=== PATIENT | male | born 1955 | race Caucasian/White ===

== ENCOUNTER 2024-07-18 10:21 | Outpatient (AMB) | payer MEDICARE, MEDICAID, SELFPAY ==
--- NOTE | 2024-07-18 10:31 | A.OFFVIS_ITS ---
Vital Signs 07/18/24 10:42 Height 5 ft 10 in Weight 202 lb 6 oz BMI 29.0 BP 140/89 H Blood Pressure Location Lt brachial Position Sitting Respiration 16 Pulse 74 Pulse Source Pulse Oximeter Pulse Oximetry (%) 93 Oxygen Delivery Method Room Air Intake Visit Reasons: Lumbar Disc Disease Intake Note: Patient comes in for initial visit was referred by [facility]. He is accompanied by sister Tamie. Reports pain 03/04. Accompanied by: Sister Allergies No Known Allergies Allergy (Verified 07/18/24 10:41) HPI Comments Details: Jabari is very pleasant [place]-speaking 69 years old gentleman who presents in my office with complains on pain in the lower back as well as discomfort in the right upper and right lower extremity secondary to the stroke. He reports the pain in the back is most severe in the left side of the back. The most of the problem he experiences with this pain when he is trying to stand up from sitting position as well as when he is standing and walking. He does not report increased pain with prolonged sitting. He is able to lie down without difficulty. He received the stroke in August of 2013. However he reports that back pain started 1 year ago. Because of his pain he reports that he can not sleep normally. He can do activities of daily living, he can barely take care of himself but he can not function normally. He is retired individual. He tried physical therapy for his pain long time ago. He tried NSAIDs and Tylenol with no help. He never had an MRI of the lumbar spine before. He never received any injections. His past medical history significant for frequent uri nations and history of stroke. Past medical history significant for cholecystectomy in 2002. Social history: He stopped smoking 13 years ago. He denies drinking alcohol caffeinated beverages he denies recreational drugs. Review of Systems Card Reports no additional complaints Resp Reports no additional complaints GI Reports no additional complaints Reports urinary frequency Musc Reports as per HPI Neuro Reports as per HPI Physical Exam Vital Signs: Last Vital Signs Pulse 74 07/18/24 10:42 Resp 16 07/18/24 10:42 BP 140/89 H 07/18/24 10:42 Pulse Ox 93 07/18/24 10:42 Oxygen Delivery Method Room Air 07/18/24 10:42 BMI result Body Mass Index 29.0 Const General: cooperative and well developed Nutritional Appearance: well nourished and obese Orientation/consciousness: patient oriented x3 Limitations: no limitations Chest Chest palpation & inspection: normal inspection of the chest Resp Effort & Inspection: normal respiratory effort, able to speak in complete sentences, normal respiratory pattern, no audible wheezes and no cough Cardio Jugular venous distension: no JVD GI Inspection: Yes normal to inspection General: Yes no CVA tenderness Back/Spine/Pelvis Other: No tenderness on palpation in spinal paraspinal regions. 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 Unable to stand up. SLR is negative bilaterally. Obi test is negative bilaterally. Pelvic compression pelvic distraction test is negative bilaterally. Flexion forward and flexion backwards do not affect his pain. Valsalva maneuver do not change his pain. Back: no CVA tenderness Neuro General: patient oriented x3 Assessment & Plan Assessment & Plan (1) Spondylosis of lumbar region without myelopathy or radiculopathy: Code(s): M47.816 - Spondylosis without myelopathy or radiculopathy, lumbar region Category: Medical (2) Chronic pain syndrome: Code(s): G89.4 - Chronic pain syndrome Category: Medical Plan This patient is suffering from spondylosis of lumbar spine and never had MRI done. I will send him for MRI of the lumbar spine. Also send in for physical therapy to treat his lower back pain. After the patient will receive the MRI he will give us a call and schedule appointment with me. We will review the results of the MRI and detect the plan of further treatment. Orders: Orders MR lumbar spine wo con Today M47.816 - Spondylosis without myelopathy or radiculopathy, lumbar region PT Evaluation and Treatment Today G89.4 - Chronic pain syndrome, M47.816 - Spondylosis without myelopathy or radiculopathy, lumbar region Coding Level of Care Code New Pt Level 3 (68027) Diagnoses Spondylosis of lumbar region without myelopathy or radiculopathy M47.816 Chronic pain syndrome G89.4
[2024-07-18 10:42] VITALS: BP 140/89; PULSE 74; RESP 16; O2SAT 93; BMI 29.0
== END 2024-07-18 11:09 | disposition home or self-care (01) ==
PROVIDERS: PCP Physician Assistant; Referring Provider Physician Assistant; Visit Provider Anesthesiology
DX: M47.816 Spondylosis without myelopathy or radiculopathy, lumbar region (principal); G89.4 Chronic pain syndrome
CPT/HCPCS: 99203

== ENCOUNTER → 2024-07-18 10:21 | Outpatient (BNVA) | payer MEDICARE, SELFPAY | PROVIDERS: PCP Physician Assistant; Referring Provider Physician Assistant; Visit Provider Anesthesiology | DX: M47.816 Spondylosis without myelopathy or radiculopathy, lumbar region (principal); G89.4 Chronic pain syndrome | CPT/HCPCS: 99202 ==

== ENCOUNTER 2024-08-09 11:00 | Outpatient (RCR) | payer MEDICARE, MEDICAID, SELFPAY | END 2024-08-14 15:07 | disposition home or self-care (01) | LOC: HO.PT 11:00 | PROVIDERS: PCP Physician Assistant; Visit Provider Anesthesiology | DX: M47.816 Spondylosis without myelopathy or radiculopathy, lumbar region (principal); G89.4 Chronic pain syndrome | CPT/HCPCS: 97163 ==

== ENCOUNTER 2024-08-24 09:51 | Outpatient (REF) | payer MEDICARE, MEDICAID, SELFPAY | END 2024-08-24 09:52 | disposition home or self-care (01) | LOC: HO.MRI 09:51 | PROVIDERS: PCP Physician Assistant; Visit Provider Anesthesiology | DX: M47.816 Spondylosis without myelopathy or radiculopathy, lumbar region (principal) | CPT/HCPCS: 72148 ==

== ENCOUNTER 2024-10-10 13:26 | Outpatient (AMB) | payer MEDICARE, MEDICAID, SELFPAY ==
--- NOTE | 2024-10-10 13:27 | A.OFFVIS_ITS ---
Vital Signs 10/10/24 13:35 Height 5 ft 10 in Weight 198 lb 6.656 oz BMI 28.5 BP 167/86 H Blood Pressure Location Lt brachial Position Sitting Pulse 107 H Pulse Source Pulse Oximeter Pulse Oximetry (%) 97 Oxygen Delivery Method Room Air Intake Visit Reasons: Discuss MRI Results Intake Note: Pain today 04/03 Tungsten [employer]iner Required: No Accompanied by: Self / Same As Patient Allergies No Known Allergies Allergy (Verified 10/10/24 13:36) HPI Comments Details: Jabari is back in my office after we performed MRI of the lumbar spine. Results of the MRI dictated as below. Unfortunately patient did not complete any of the recommended physical therapy for him. I insisted on him trying to complete at least 6 sessions of physical therapy with good exercise program. Then I will be able to address the changes on his MRI with injections. Prior: complains on pain in the lower back as well as discomfort in the right upper and right lower extremity secondary to the stroke. He reports the pain in the back is most severe in the left side of the back. The most of the problem he experiences with this pain when he is trying to stand up from sitting position as well as when he is standing and walking. He does not report increased pain with prolonged sitting. He is able to lie down without difficulty. History of stroke, 2013. back pain started 1 year ago. He tried NSAIDs and Tylenol with no help. He never had an MRI of the lumbar spine before. He never received any injections. Review of Systems Const All systems reviewed & are unremarkable except as noted in HPI and below Physical Exam Vital Signs: Last Vital Signs Pulse 107 H 10/10/24 13:35 BP 167/86 H 10/10/24 13:35 Pulse Ox 97 10/10/24 13:35 Oxygen Delivery Method Room Air 10/10/24 13:35 BMI result Body Mass Index 28.5 Const General: cooperative and well developed Nutritional Appearance: well nourished and obese Orientation/consciousness: patient oriented x3 Limitations: no limitations Chest Chest palpation & inspection: normal inspection of the chest Resp Effort & Inspection: normal respiratory effort, able to speak in complete se ntences, normal respiratory pattern, no audible wheezes and no cough Cardio Jugular venous distension: no JVD GI Inspection: Yes normal to inspection General: Yes no CVA tenderness Back/Spine/Pelvis Other: No tenderness on palpation in spinal paraspinal regions. 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 Unable to stand up. SLR is negative bilaterally. Obi test is negative bilaterally. Pelvic compression pelvic distraction test is negative bilaterally. Flexion forward and flexion backwards do not affect his pain. Valsalva maneuver do not change his pain. Back: no CVA tenderness Neuro General: patient oriented x3 Results Reviewed Results Reviewed: MR LUMBAR SPINE WITHOUT CONTRAST CLINICAL INFORMATION: 69-year-old with self-reported low back pain of 3-4 years' duration, now worsening with self-reported lumbar radicular symptoms, right more than left. Spondylosis without myelopathy or radiculopathy, lumbar region. FINDINGS: CORONAL ALIGNMENT: There is mild mid to lower lumbar dextrocurvature, with mild ntac-td-muuwp lateral listhesis at L4-L5 stable from prior CT. SAGITTAL ALIGNMENT: Mild retrolisthesis at L5-S1 is stable. Otherwise the lumbar spine is anatomically aligned in the sagittal plane. LUMBOSACRAL JUNCTION: Normal. There are 5 lvk-ame-jxsyyrv lumbar-type vertebral bodies. VERTEBRAL BODIES: There is approximately 30-35% loss of height along the superior endplate of the L1 vertebral body since the prior CT, which appears largely healed consistent with a benign compression fracture since the previous exam with slight retropulsion of the superior endplate. Remaining vertebral body heights are largely stable since the previous CT. DISC SPACES AND ENDPLATES: Moderate disc space height loss is noted at L5-S1 with intradiscal degenerative signal changes and intradiscal vacuum disc phenomenon similar to the prior CT. Schmorl's node formation is noted along the inferior endplate of L5 also similar to prior CT and there is anterolateral spondylosis more evident at this level than prior CT. There is severe disc space height loss at L4-L5 similar to the prior CT with intradiscal degenerative signal changes, Schmorl's nodes and rwjkkltl-lo-jhdzug spondylosis. There is intradiscal degenerative signal change seen throughout the remainder of the lumbar and visualized lower thoracic intervertebral discs. There is a Schmorl's node along the compressed superior endplate of L1. There is fishmouth remodeling along the endplates between T12-L1 and L3-L4 inclusive. SPINAL CANAL: There is moderately prominent epidural fat noted with prominent dorsal fat pads at L2-L3 and L3-L4 and prominent dorsal and ventral epidural fat at L4-L5 and L5-S1. BONE MARROW: There is type I and type III degenerative marrow signal change seen along the inferior endplate of L5. There is predominately type II degenerative marrow signal change along the endplates at L4-L5 and there is predominately type II marrow signal change along the superior endplate of L1. Small foci of signal loss are seen within the left iliac bone which corresponded to sclerotic foci on the previous CT consistent with bone islands. No suspicious marrow-replacing process or bone marrow edema. CONUS MEDULLARIS: Terminates at L1. Morphology and signal is normal. INTRADURAL NERVE ROOTS: Within normal limits. L5-S1: Concentric disc osteophyte complex is noted which contacts the ventral thecal sac and left S1 nerve root sleeve. There is mild left and vaoj-ms-uvxkjztk right-sided facet joint arthropathy noted with ligamentum flavum thickening without significant canal stenosis. There is mliuohea-ma-atjzlh right-sided and sujz-br-mdcrtwdu left-sided neural foraminal stenosis with encroachment on the right L5 nerve root. L4-L5: Concentric disc osteophyte complex is noted with flattening of the ventral dural sac with moderate facet joint arthropathy bilaterally and probable calcification or ossification of the ligamentum flavum on the right. No significant central canal stenosis. There is some crowding of the subarticular zones bilaterally, left more than right with mild encroachment on the L5 nerve roots, left more than right. Fncu-lo-rahiepas neural foraminal stenosis is noted bilaterally with disc osteophyte complex abutting the exiting left L4 nerve root. L3-L4: Diffuse disc bulging is noted with concentric annular fissuring and mild flattening of the ventral dural sac with a prominent dorsal fat pad. Ligamentum flavum thickening is noted with encefckk-ud-bqkhof facet joint arthropathy, right more than left. There is mild central canal stenosis and slight narrowing of the subarticular zones. There is mild bilateral foraminal narrowing. L2-L3: There is disc bulging with a superimposed shallow right paracentral disc protrusion and right posterolateral/paravertebral disc osteophyte complex. There is qpjb-af-fosvzekk flattening of the ventral dural sac slightly asymmetric to the right with a prominent dorsal fat pad with ligamentum flavum thickening, moderate right and mild left-sided facet joint arthropathy. Mild central canal stenosis is noted with mild left and abot-uq-voboqrcr right-sided neural foraminal narrowing. Disc osteophyte complex contacts the extraforaminal right L2 nerve root. L1-L2: There is disc bulging and a shallow central to left paramedian disc protrusion with annular fissuring and mild flattening of the ventral dural sac asymmetric to the left. Ligamentum flavum thickening is noted without significant canal stenosis. Mild facet joint arthropathy is noted bilaterally. There is almg-gd-nkzfqnif neural foraminal narrowing, left more than right. There is diffuse disc bulging at T12-L1 with moderate bilateral facet joint arthropathy at this level and mild flattening of the ventral dural sac with mild central canal stenosis without cord impingement. There is moderate bilateral neural foraminal stenosis. There is facet joint arthropathy bilaterally at T11-T12 which is not imaged in the axial plane. PARAVERTEBRAL AND INCLUDED EXTRASPINAL SOFT TISSUES: The paravertebral soft tissues appear grossly unremarkable. The visualized retroperitoneal structures are grossly unremarkable in appearance within the limitations of the study. There is marked prostatic enlargement, indenting and elevating the bladder base similar to prior CT. MR/MR lumbar spine wo con IMPRESSION: 1. Mild mid to lower lumbar dextrocurvature with peyp-xh-ketrs lateral listhesis at L4-L5 and mild retrolisthesis at L5-S1 stable from prior CT. 2. Severe discogenic degenerative changes at L4-L5 and L5-S1 with spondylosis similar to prior CT. 3. Multilevel disc bulging and disc osteophyte complexes with multilevel bilateral facet joint arthropathy and ligamentum flavum thickening superimposed on prominent dorsal fat pads, with mild degrees of canal stenosis at L3-L4 and L2-L3 and mild canal stenosis at T12-L1. 4. Multilevel bilateral neural foraminal stenosis, most apparent on the right at L5-S1 with encroachment on the right L5 nerve root and to a lesser degree bilaterally at L4-L5 with encroachment on the extraforaminal left L4 nerve root. Oqvb-wa-bsioovwk neural foraminal narrowing on the right at L2-L3 and bilaterally at L1-L2 and T12-L1. 5. Aqdv-wh-jaltqepq, benign-appearing, chronic compression fracture along the superior endplate of L1 which appears largely healed with slight retropulsion of the superior endplate, new finding from prior CT. 6. Marked prostatic enlargement, unchanged. Assessment & Plan Assessment & Plan (1) Spondylosis of lumbar region without myelopathy or radiculopathy: Code(s): M47.816 - Spondylosis without myelopathy or radiculopathy, lumbar region Category: Medical (2) Chronic pain syndrome: Code(s): G89.4 - Chronic pain syndrome Category: Medical (3) Vertebrogenic low back pain: Code(s): M54.51 - Vertebrogenic low back pain Category: Medical Plan This patient is suffering from spondylosis of lumbar spine and never had MRI done. I MRI results are as above however the patient did not even think about completing his physical therapy. I will schedule him again for physical therapy. He must complete at least 6 sessions and continue home exercise program. After that we will be able to address the changes on the MRI above. Orders: Orders PT Evaluation and Treatment Today G89.4 - Chronic pain syndrome, M47.816 - Spondylosis without myelopathy or radiculopathy, lumbar region, M54.51 - Vertebrogenic low back pain Patient Instructions: I here by testify that I spent 30 minutes in conversation with this patient as well as planning his care, reading the MRI reports and inspecting the MRI images and organizing this note Coding Level of Care Code Est Pt Level 4 (45996) Diagnoses Spondylosis of lumbar region without myelopathy or radiculopathy M47.816 Chronic pain syndrome G89.4 Vertebrogenic low back pain M54.51
[2024-10-10 13:35] VITALS: BP 167/86; PULSE 107; O2SAT 97; BMI 28.5
== END 2024-10-10 14:01 | disposition home or self-care (01) ==
PROVIDERS: PCP Physician Assistant; Visit Provider Anesthesiology
DX: M47.816 Spondylosis without myelopathy or radiculopathy, lumbar region (principal); G89.4 Chronic pain syndrome; M54.51 Vertebrogenic low back pain
CPT/HCPCS: 99214

== ENCOUNTER → 2024-10-10 13:26 | Outpatient (BNVA) | payer MEDICARE, MEDICAID, SELFPAY | PROVIDERS: PCP Physician Assistant; Visit Provider Anesthesiology | DX: M47.816 Spondylosis without myelopathy or radiculopathy, lumbar region (principal); M54.51 Vertebrogenic low back pain; G89.4 Chronic pain syndrome | CPT/HCPCS: 99212 ==